=== PATIENT | male | born 1960 | race Caucasian/White ===

== ENCOUNTER 2024-04-12 17:44 | Emergency (ER) | payer BC, SELFPAY ==
[2024-04-12 18:00] VITALS: BP 186/93
[2024-04-12 18:08] LABS: Glucose - Point of Care 181 mg/dl (70-99)
[2024-04-12 18:36] LABS: % Basophils 0.8 % (0-2); % Eosinophils 0.8 % (0-6); % Immature Granulocytes 0.2 % (0-0.5); % Lymphocytes 11.5 % (20.5-51.1); % Neutrophils 80.7 % (42.2-75.2); Absolute Basophils 0.1 10^3/uL (0-0.2); Absolute Eosinophils 0.1 10^3/uL (0-0.7); Absolute Lymphocytes 1.5 10^3/uL (1.2-3.4); Absolute Monocytes 0.8 10^3/uL (0.1-0.6); Absolute Neutrophils 10.5 10^3/uL (1.4-6.5); Hematocrit 47.9 % (39.0-52.0); Mean Corp Hgb Conc. 35.5 g/dL (33.0-37.0); Mean Corpuscular Hgb 30.3 pg (27.0-31.0); Mean Corpuscular Volume 85.4 fL (80.0-94.0); Mean Platelet Volume 11.5 fL (7.4-10.4); Nucleated Red Blood Cells % 0 % (-); Platelet Count 217 10^3/uL (130-400); Red Blood Cell Count 5.61 10^6/uL (4.70-6.10); Red Cell Dist. Width 12.5 % (11.5-14.5)
[2024-04-12 18:49] LABS: Lactic Acid 2.9 mmol/L (0.7-2.0)
[2024-04-12 18:52] LABS: COVID-19 Antigen Negative (Negative)
[2024-04-12 18:56] LABS: ALT (SGPT) 21 U/L (0-50); AST (SGOT) 38 U/L (17-59); Alkaline Phosphatase 81 U/L (38-126); Blood Urea Nitrogen 36 mg/dl (9-20); Calcium 9.6 mg/dl (8.4-10.2); Carbon Dioxide 29 mmol/L (22-30); Chloride 85 mmol/L (98-107); Glucose 192 mg/dl (70-99); Potassium 4.1 mmol/L (3.5-5.1); Sodium 134 mmol/L (135-145); Total Bilirubin 0.9 mg/dl (0.2-1.3); Total Protein 7.5 g/dl (6.3-8.2); eGFR > 60.00
[2024-04-12 19:02] LABS: NT-proBNP < 20.0 pg/ml; Troponin I 0.012 ng/ml
[2024-04-12 20:38] VITALS: BMI 30.1
[2024-04-12 20:45] VITALS: BP 171/68
--- NOTE | 2024-04-12 20:55 | ED.GENMED ---
History of Present Illness
<Kelton Cox DO - Last Filed: 04/12/24 23:25>
General
Chief Complaint: Abdominal Symptoms
Source: patient
Exam Limitations: none
Time Seen by Provider: 04/12/24 20:36
Nursing documentation reviewed up to this point in time: agreed with
History of Present Illness
History of Present Illness:
64-year-old male presents emergency room complaining of 3 days of nausea vomiting, abdominal pain and chest pain. Chest pain started today.
Past History
<Kelton Cox, DO - Last Filed: 04/12/24 23:25>
Past History
ED Past Medical History: HTN, Hypercholesterolemia and IDDM
ED Past Surgical History: Orthopedic (Bilateral knee surgery)
Social History
Tobacco: Smoker
Alcohol: Occasional
Personal:
Living: with family
Employment: Employed
Review of Systems
<Kelton Cox DO - Last Filed: 04/12/24 23:25>
Review of Systems
Allergies reviewed?: Yes
All Other Systems: Not applicable
Constitutional: Reports no symptoms
EENT: Reports no symptoms
Respiratory: Reports no symptoms
Cardiac: Reports chest pain
ABD/GI: Reports abdominal pain, nausea and vomiting
: Reports no symptoms
Musculoskeletal: Reports no symptoms
Skin: Reports no symptoms
Neurological: Reports no symptoms
Endocrine: Reports no symptoms
Hematologic/Lymphatic: Reports no symptoms
Psychiatric: Reports no symptoms
Phy Exam
<Kelton Cox DO - Last Filed: 04/12/24 23:25>
Physical Exam
Physical Exam:
Physical Exam
General: Appears uncomfortable, afebrile
Neck: supple. no meningeal signs. normal posterior pharynx
Heart: s1/s2 tachycardia, no murmur. equal radial
pulses.
HEENT: Pupils equal round reactive to light, EOMI
Lungs: no acute respiratory distress. clear bilaterally
Abdomen: normal bowel sounds. not tender. no CVAT
Neuro: alert and oriented. no focal neurological deficits cranial nerves II through XII intact
Skin: no rash
Psychiatric: well kept. interactive and cooperative
Extremities: no edema. no calf tenderness. negative homans. good distal pulses
Course
<Kelton Cox, DO - Last Filed: 04/12/24 23:25>
Orders/Labs/Results
Orders:
Orders
04/12/24 17:47
Electrocardiogram (*1) Urgent
Reason for Study: Chest Pain
EKG- Treatment ONCE
04/12/24 18:04
CR Chest - 2 Views Urgent
Comment:
Reason For Exam: SOB
04/12/24 18:27
COVID-19 Antigen Urgent
Source: Nasal Swab
Complete Blood Count/With Diff Urgent
Comprehensive Metabolic Panel Urgent
Lactic Acid Urgent
Lipase Urgent
Comment: ADD ON
NT-proBNP Urgent
Troponin I Urgent
Influenza A+B Rapid Molecular Urgent
[facility] Source: Nasal Swab
Specimen Description:
04/12/24 20:18
Add On- LAB Urgent
Tests Added?: lipase
04/12/24 20:54
Ondansetron Injectable [Zofran] 4 mg IV NOW STA
04/12/24 20:55
Lactated Ringers [Lr] 1,000 ml IV BOLUS
04/12/24 20:56
CT Chest/abd/pelvis Angio W/wo Urgent
Comment:
Reason For Exam: chest pain/abdominal pain, vomiting
04/12/24 21:23
Troponin I Urgent
04/12/24 23:09
Electrocardiogram (*1) Urgent
Reason for Study: Chest Pain
EKG- Treatment ONCE
04/12/24 23:30
Lactic Acid Urgent
Troponin I Urgent
04/13/24 01:22
0.9% Sodium Chloride 1000 ml [Nss] 1,000 ml IV BOLUS
Ondansetron Injectable [Zofran] 4 mg IV NOW STA
04/13/24 01:23
Encourage PO Hydration-Treatme ONCE
Abnormal Lab Results
04/12/24 04/12/24
18:07 18:27
WBC 13.0 H 10^3/uL
(4.8-10.8)
MPV 11.5 H fL
(7.4-10.4)
Absolute Neuts (auto) 10.5 H 10^3/uL
(1.4-6.5)
Absolute Monos (auto) 0.8 H 10^3/uL
(0.1-0.6)
Neutrophils % 80.7 H %
(42.2-75.2)
Lymphocytes % 11.5 L %
(20.5-51.1)
Sodium 134 L mmol/L
(135-145)
Chloride 85 L mmol/L
(98-107)
BUN 36 H mg/dl
(9-20)
Glucose 192 H mg/dl
(70-99)
Lactic Acid 2.9 H mmol/L
(0.7-2.0)
POC Glucose 181 H mg/dl
(70-99)
04/12/24 18:27
04/12/24 18:27
Vital Signs
Initial and Last Documented VS:
Initial Vital Signs
Temp Pulse Resp BP Pulse Ox
98.1 F 101 20 186/93 99
04/12/24 18:00 04/12/24 18:00 04/12/24 18:00 04/12/24 18:00 04/12/24 18:00
Last Documented Vital Signs
Temp Pulse Resp BP Pulse Ox
98.1 F 80 11 155/75 93
04/12/24 18:00 04/12/24 21:30 04/12/24 21:30 04/12/24 21:00 04/12/24 21:00
<Michela Ramos, DO - Last Filed: 04/13/24 03:38>
Orders/Labs/Results
Orders:
Orders
04/12/24 17:47
Electrocardiogram (*1) Urgent
Reason for Study: Chest Pain
EKG- Treatment ONCE
04/12/24 18:04
CR Chest - 2 Views Urgent
Comment:
Reason For Exam: SOB
04/12/24 18:27
COVID-19 Antigen Urgent
Source: Nasal Swab
Complete Blood Count/With Diff Urgent
Comprehensive Metabolic Panel Urgent
Lactic Acid Urgent
Lipase Urgent
Comment: ADD ON
NT-proBNP Urgent
Troponin I Urgent
Influenza A+B Rapid Molecular Urgent
[facility] Source: Nasal Swab
Specimen Description:
04/12/24 20:18
Add On- LAB Urgent
Tests Added?: lipase
04/12/24 20:54
Ondansetron Injectable [Zofran] 4 mg IV NOW STA
04/12/24 20:55
Lactated Ringers [Lr] 1,000 ml IV BOLUS
04/12/24 20:56
CT Chest/abd/pelvis Angio W/wo Urgent
Comment:
Reason For Exam: chest pain/abdominal pain, vomiting
04/12/24 21:23
Troponin I Urgent
04/12/24 23:09
Electrocardiogram (*1) Urgent
Reason for Study: Chest Pain
EKG- Treatment ONCE
04/12/24 23:30
Lactic Acid Urgent
Troponin I Urgent
04/13/24 01:22
0.9% Sodium Chloride 1000 ml [Nss] 1,000 ml IV BOLUS
Ondansetron Injectable [Zofran] 4 mg IV NOW STA
04/13/24 01:23
Encourage PO Hydration-Treatme ONCE
Abnormal Lab Results
04/12/24 04/12/24
18:07 18:27
WBC 13.0 H 10^3/uL
(4.8-10.8)
MPV 11.5 H fL
(7.4-10.4)
Absolute Neuts (auto) 10.5 H 10^3/uL
(1.4-6.5)
Absolute Monos (auto) 0.8 H 10^3/uL
(0.1-0.6)
Neutrophils % 80.7 H %
(42.2-75.2)
Lymphocytes % 11.5 L %
(20.5-51.1)
Sodium 134 L mmol/L
(135-145)
Chloride 85 L mmol/L
(98-107)
BUN 36 H mg/dl
(9-20)
Glucose 192 H mg/dl
(70-99)
Lactic Acid 2.9 H mmol/L
(0.7-2.0)
POC Glucose 181 H mg/dl
(70-99)
04/12/24 18:27
04/12/24 18:27
Vital Signs
Initial and Last Documented VS:
Initial Vital Signs
Temp Pulse Resp BP Pulse Ox
98.1 F 101 20 186/93 99
04/12/24 18:00 04/12/24 18:00 04/12/24 18:00 04/12/24 18:00 04/12/24 18:00
Last Documented Vital Signs
Temp Pulse Resp BP Pulse Ox
98.1 F 80 11 155/75 93
04/12/24 18:00 04/12/24 21:30 04/12/24 21:30 04/12/24 21:00 04/12/24 21:00
<Kelton Cox, DO - Last Filed: 04/12/24 23:25>
MDM/Problems Addressed
Differential Diagnosis Includes:
ACS, PE, gastroenteritis
MDM/Problems Addressed:
64-year-old male with nausea vomiting, chest pain abdominal pain. He restarted his Mounjaro on Monday at a higher dose. He was trying to take a half dose but it was not working and he was getting the full dose. He has had similar symptoms before
on Mounjaro. Suspect symptoms are related to this medication. CT abdomen pelvis no acute findings. Troponins serially negative. Will repeat lactic acid and troponin. If negative or not increase, will discharge.
Chronic conditions affecting care: DM
Acute Exacerbation and/or Progression of Chronic Illness: DM
<Kelton Cox, DO - Last Filed: 04/12/24 23:25>
*Radiology
Radiology exam reviewed: radiology read reviewed (CT chest abdomen pelvis no acute findings)
*Pulse Oximetry
Patient hypoxic: no
*EKG
Interpreted by ED Provider?: Yes
EKG Intrepretation Date: 04/12/24
EKG Intrepretation Time: 17:57
Interpretation: abnormal
Comparison EKG: no comparison EKG present
Heart Rate: 75
Rate: normal
Rhythm: sinus and sinus arrhythmia
[place]: normal axis
Interval: normal interval
QRS Pattern: normal QRS
Ischemia: no ischemia
*Police Detective Interpretation
Rate: normal
Interpretation: normal
Heart Rate: 74
Rhythm: sinus
<Michela Ramos, DO - Last Filed: 04/13/24 03:38>
*Critical Care Note
Total Time (30-74mins, 75-104mins- exclusive of procedures): Not Applicable
<Michela Ramos, DO - Last Filed: 04/13/24 03:38>
Update Note
Update Note:
01:20
Repeat lactic acid is normal at 1.9.
Troponin remains stable, unchanged at 0.024.
Patient reevaluated. He continues with significant nausea, intermittent dry heaves. He has had no diarrhea and denies recent episodes of diarrhea.
He had been maintained on Mounjaro 10 mg weekly for quite some time but then inadvertently discontinued a few months ago due to lack of supply. Mounjaro resumed at 10 mg on April 08. Patient admits that he attempted to limit the full
injection of 10 mg by withdrawing the needle prior to full delivery but I do suspect that symptoms are related to resumption of too high of a dose of Mounjaro after absence of medication for a few months.
Other consideration is gastroenteritis. Oral temperature 98.9 �F currently.
Labs remarkable for moderately elevated BUN of 36, normal creatinine 1.1. Minimal hyponatremia, moderate hypochloremia.
Will continue IV fluids and will trial another dose of IV Zofran. Could consider Reglan if this is ineffective.
Goal is to limit nausea and allow for oral fluid challenge. If this is unsuccessful patient may require acute hospitalization for continued IV fluids and antiemetics.
03:30
After additional IV fluids and additional dose of Zofran patient is feeling markedly improved, tolerating oral fluids, no further vomiting.
Abdomen is soft without appreciable tenderness.
Will discharge to home with prescription for Zofran and ODT for as needed nausea.
Recommend limiting diet to clear liquids today, slowly advance to soft bland foods thereafter.
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
ED Attending Note
<Kelton Cox, DO - Last Filed: 04/12/24 23:25>
-
Portions of this chart may have been created with voice recognition software.� Occasional wrong word or��sound alike� substitutions may have occurred due to the inherent limitations of voice recognition software.
Discharge Plan
Departure
Patient Disposition: Home (Routine Discharge)
Date of Disposition: 04/13/24
Time of Disposition: 03:35
Patient with high blood pressure during this ER visit?: No
Condition: Good
Discharge Problem:
Chest pain, Abdominal pain, Moderate nausea and vomiting
Instructions: Clear Liquid Diet, Chest pain, Nausea and vomiting in adults, Abdominal Pain
Prescriptions:
New
ondansetron 4 mg tablet,disintegrating
4 mg PO Q8H PRN (Reason: nausea and vomiting) 3 Days Qty: 7 0RF
Referrals:
Harriet Keen PA [Family Provider] - Call in 1-3 days for appt
Interventions
Interventions:
*Risk Screen - Suicide Last Done: 04/12/24 20:38
*General Assessment Last Done: 04/12/24 18:00
*Neglect/Abuse Screening Last Done: 04/12/24 20:38
ED- Fall Risk Assessment Last Done: 04/12/24 20:38
*ED COVID-19 Vaccine History Last Done: 04/12/24 20:38
HN-Rziiii-Nalfnqjawz Assessment Last Done: 04/12/24 20:38
Discharge Date and Time
Print Language: DJIBOUTIAN
[2024-04-12 21:00] VITALS: BP 155/75
[2024-04-12 21:06] LABS: Lipase 299 U/L (23-300)
[2024-04-12] MEDS: LR 1000 IV (21:22)
[2024-04-12] MEDS: ZOFRAN 4 MG IV (21:22)
[2024-04-12 22:02] LABS: Troponin I 0.024 ng/ml
[2024-04-12 22:13] VITALS: BP 159/60
[2024-04-12 23:00] VITALS: BP 137/61
[2024-04-12 23:51] LABS: Lactic Acid 1.9 mmol/L (0.7-2.0)
[2024-04-13 00:04] LABS: Troponin I 0.024 ng/ml
[2024-04-13 01:00] VITALS: BP 163/73
[2024-04-13] MEDS: ZOFRAN 4 MG IV (01:32)
[2024-04-13] MEDS: NSS 1000 IV (01:36)
== END 2024-04-13 03:45 | disposition home or self-care (01) ==
LOC: EMR 17:44
PROVIDERS: Emergency Medicine; Student in an Organized Health Care Education/Training Program; EMERGENCY PHYSICIAN Emergency Medicine; FAMILY PHYSICIAN Physician Assistant
DX: R07.89 Other chest pain (principal); R10.9 Unspecified abdominal pain; R11.2 Nausea with vomiting, unspecified; I10 Essential (primary) hypertension; E78.00 Pure hypercholesterolemia, unspecified; E11.9 Type 2 diabetes mellitus without complications; E87.1 Hypo-osmolality and hyponatremia; E87.8 Other disorders of electrolyte and fluid balance, not elsewhere classified; F17.200 Nicotine dependence, unspecified, uncomplicated; Z79.4 Long term (current) use of insulin
CPT/HCPCS: 99284; 96374; 96376; 96361; 71046; 71275; 74174; 80053; 82962; 83605; 83690; 83880; 84484; 85025; 87502; 87811; 93005; Q9967